=== PATIENT | male | born 1935 | race Caucasian/White ===

== ENCOUNTER → 2017-04-03 | Outpatient (CLI) | payer MEDICARE ==
[~2017-04-03] MED LIST: AMLO5TAB2 PO; ATOR20TA9 PO; BUDE3CAP6 PO; BUDESONIDE PO; CALC625T13 PO; CALCIUM PO; CHON250C PO; CHONDROITIN PO; GABA300C10 PO; GLUC1500 PO; LOSA50TA6 PO; MELA5TAB19 PO; MULT-224 PO; MULTIVITAMIN PO; NATURAL FIBER PO; NEBI5TAB2 PO; OMEG1CAP6 PO; PRAM0.12 PO; PROVASTATIN PO; REGADENOSON 0.4 MG/5 ML SYRINGE ONE
== END | disposition home or self-care (01) ==
LOC: CFH 12:19
PROVIDERS: ATTEND Internal Medicine Cardiovascular Disease
DX: R07.9 Chest pain, unspecified (principal); I10 Essential (primary) hypertension
CPT/HCPCS: 78452; 93017; A9502; J2785

== ENCOUNTER → 2017-04-05 | Outpatient (CLI) | payer MEDICARE ==
[~2017-04-05] MED LIST changes: -REGADENOSON 0.4 MG/5 ML SYRINGE ONE
== END | disposition home or self-care (01) ==
LOC: CVU 06:45
PROVIDERS: ATTEND Internal Medicine Cardiovascular Disease
DX: I10 Essential (primary) hypertension (principal); Z85.51 Personal history of malignant neoplasm of bladder; Z87.891 Personal history of nicotine dependence
CPT/HCPCS: 93306

== ENCOUNTER 2017-04-11 09:00 | Day surgery (SDC) | payer MEDICARE ==
[~2017-04-11] VITALS: Ht 170.2 cm; Wt 71.0 kg
[~2017-04-11 09:00] MED LIST changes: +BUPIVACAINE/PF 0.25% ONE; +EPINEPHRINE 1 MG/ML, 1ML ONE; +LIDOCAINE/PF 0.5% ,50ML ONE; +THROMBIN 5,000 UNIT VIAL TP ONE; +VANCOMYCIN 1,000 MG ONE
[2017-04-11] MEDS ORDERED: LACTATED RINGERS 1,000 ML IV SCH (09:47)
[2017-04-11 09:49] VITALS: BP 150/88
[2017-04-11] MEDS ORDERED: NEBIVOLOL HCL 5 MG TABLET PO STA (10:00)
[2017-04-11] MEDS ORDERED: LIDOCAINE 1%, 2ML SQ PRN (10:00)
[2017-04-11] MEDS ORDERED: FENTANYL PF 250 MCG/5ML ONE (11:09)
[2017-04-11] MEDS ORDERED: EPHEDRINE 50 MG/ML, 1ML ONE (12:16)
[2017-04-11] MEDS ORDERED: ALBUTEROL SULFATE 2.5 MG/3 ML NPPB PRN (13:00)
[2017-04-11] MEDS ORDERED: PROMETHAZINE 25 MG/ML, 1ML IV PRN (13:00)
[2017-04-11] MEDS ORDERED: hydrALAzine 20 MG/ML, 1ML IV PRN (13:00)
[2017-04-11] MEDS ORDERED: METOPROLOL 1 MG/ML, 5ML IV PRN (13:00)
[2017-04-11] MEDS ORDERED: ACETAMINOPHEN 325 MG TABLET PO PRN (13:00)
[2017-04-11] MEDS ORDERED: OXYcodone 5 MG/5 ML ORAL.SOL UDC PO PRN (13:00)
[2017-04-11] MEDS ORDERED: HYDROmorphone 1 MG/ML, 1ML IV PRN (13:00)
[2017-04-11] MEDS ORDERED: LIDOCAINE 0.5%-EPI 1:200K, 50ML INFIL ONE (13:13)
[2017-04-11] MEDS ORDERED: BUPIVACAINE/PF-EPI 0.25% 1:200K INFIL ONE (13:17)
[2017-04-11] MEDS ORDERED: THROMBIN 5,000 UNIT VIAL TP ONE (13:17)
[2017-04-11] MEDS ORDERED: VANCOMYCIN 1,000 MG IM ONE (13:18)
[2017-04-11] MEDS ORDERED: CEFAZOLIN 1,000 MG ONE (14:02)
[2017-04-11] MEDS ORDERED: PROPOFOL 10 MG/ML, 20ML ONE (14:02)
[2017-04-11] MEDS ORDERED: SUCCINYLCHOLINE 20 MG/ML, 10ML ONE (14:02)
[2017-04-11] MEDS ORDERED: ROCURONIUM 10 MG/ML,10ML ONE (14:02)
[2017-04-11] MEDS ORDERED: ONDANSETRON 2MG/ML, 2ML ONE (14:02)
[2017-04-11] MEDS ORDERED: DEXAMETHASONE 4 MG/ML, 1ML ONE (14:02)
[2017-04-11] MEDS ORDERED: GLYCOPYRROLATE 0.2MG/1ML, 5ML ONE (14:02)
[2017-04-11] MEDS ORDERED: NEOSTIGMINE 1 MG/ML, 10ML ONE (14:02)
[2017-04-11] MEDS ORDERED: ACETAMINOPHEN 650 MG/20.3 ML UDC ONE (14:27)
[2017-04-11] MEDS ORDERED: FENTANYL PF 100 MCG/2ML ONE (14:27)
[2017-04-11] MEDS ORDERED: OXYcodone 5 MG/5 ML ORAL.SOL UDC ONE (14:27)
[2017-04-11] MEDS: FENTANYL PF 100 MCG/2ML IV PRN ×2 (14:38→14:45)
== END 2017-04-11 17:58 ==
LOC: OUT 09:00
PROVIDERS: ATTEND Orthopaedic Surgery Orthopaedic Surgery of the Spine
DX: M51.16 Intervertebral disc disorders with radiculopathy, lumbar region (principal); I10 Essential (primary) hypertension; Z98.890 Other specified postprocedural states
CPT/HCPCS: 63030; 72100; J0171; J0330; J0690; J1100; J2001; J2405; J2704; J2710; J3010; J3370; J3490; J7120

== ENCOUNTER → 2018-03-07 | Outpatient (CLI) | payer MEDICARE ==
[~2018-03-07] MED LIST changes: -AMLO5TAB2 PO; +AMLO5TAB7 PO; -BUPIVACAINE/PF 0.25% ONE; -EPINEPHRINE 1 MG/ML, 1ML ONE; -GLUC1500 PO; +GLUC15006 PO; -LIDOCAINE/PF 0.5% ,50ML ONE; -LOSA50TA6 PO; +LOSA50TA7 PO; -NEBI5TAB2 PO; +NEBI5TAB3 PO; -THROMBIN 5,000 UNIT VIAL TP ONE; -VANCOMYCIN 1,000 MG ONE
== END | disposition home or self-care (01) ==
LOC: CVU 07:30
PROVIDERS: ATTEND Internal Medicine Cardiovascular Disease
DX: R09.89 Other specified symptoms and signs involving the circulatory and respiratory systems (principal); Z87.891 Personal history of nicotine dependence
CPT/HCPCS: 78452; 93017; 93880; A9502

== ENCOUNTER 2018-06-26 12:10 | Outpatient (CLI) | payer MEDICARE ==
[~2018-06-26 12:10] MED LIST changes: +AMLO-150 PO; -AMLO5TAB7 PO; +ATOR20TA37 PO; -ATOR20TA9 PO; +LOSA50TA14 PO; -LOSA50TA7 PO; -MULT-224 PO; +MULT-642 PO
== END 2018-06-26 23:59 | disposition home or self-care (01) ==
LOC: CARD 12:10
PROVIDERS: ATTEND Internal Medicine
DX: R06.02 Shortness of breath (principal)
CPT/HCPCS: 94060; 94618; 94726; 94729